=== PATIENT | male | born 1965 | race Caucasian/White ===

== ENCOUNTER 2019-05-02 08:33 | Emergency (ER) | payer OTHER ==
[2019-05-02] MEDS ORDERED: Ketorolac INJ* 30 MG/ML 1 ML VIAL IM ONE (10:25)
[2019-05-02] MEDS ORDERED: Diazepam TAB(*) 5 MG PO ONE (10:25)
--- NOTE | 2019-05-02 10:25 | ED ---
Lower Extremity - HPI Summary HPI Summary: The patient is a 53 y/o M presenting to [facility] with a chief complaint of gradually worsening LLE pain onset three days ago. The pain begins in the posterior left hip and wraps around into the anterior thigh extending to the knee. He endorses pain in the leg that worsened last night, causing him to suffer from pain with movement and sitting upright. The sharp, throbbing pain is currently rated 10/10 in severity. He has used heat, ice, Ibuprofen, and Oxycodone to no relief of the pain. He denies any back pain, urinary or bowel dysfunction, or numbness/saddle anesthesia. He does not sit for extended periods of time. No trauma, but he has experienced similar symptoms in the past but not to this severity for which he saw his PCP. He notes that he had been shoveling and working on his car the day previous to the pain beginning. PMHx: degenerative disc disease lumbar spine. Nonsmoker, no EtOH, no substance use. Medications reviewed. Allergies noted. - History of Current Complaint Chief Complaint: EDBackInjuryPain Stated Complaint: LOW BACK/LT LEG PAIN PER PT Time Seen by Provider: 05/02/19 09:49 Hx Obtained From: Patient Mechanism Of Injury: Unknown Onset of Pain: Prior to Arrival Onset/Duration: Days - 3 Severity Initially: Moderate Severity Currently: Severe Pain Intensity: 10 Pain Scale Used: 0-10 Numeric Timing: Constant, Lasting Days Location: Other - left posterior hip into the anterior thigh extending to knee Character Of Pain: Sharp, Throbbing Aggravating Factor(s): Ambulation, Movement, Other - sitting upright Alleviating Factor(s): Nothing - heat, ice, Oxycodone, Ibuprofen to no relief Able to Bear Weight: No - Allergies/Home Medications Allergies/Adverse Reactions: Allergies Allergy/AdvReac Type Severity Reaction Status Date / Time No Known Allergies Allergy Verified 05/02/19 08:39 PMH/Surg Hx/FS Hx/Imm Hx Endocrine/Hematology History: Denies: Hx Diabetes Cardiovascular History: Denies: Hx Hypertension Musculoskeletal History: Reports: Other Musculoskeletal History - degenerative disc disease lumbar spine - Surgical History Surgical History: None Surgery Procedure, Year, and Place: none Infectious Disease History: No Infectious Disease History: Denies: Traveled Outside the [place] in Last 30 Days - Family History Known Family History: Negative: Cardiac Disease, Diabetes - Social History Alcohol Use: None Hx Substance Use: No Substance Use Type: Reports: None Hx Tobacco Use: No Smoking Status (MU): Never Smoked Tobacco Review of Systems Negative: Other - bowel dysfunction Negative: other - urinary dysfunction Positive: Other - burning, throbbing pain from posterior left hip into anterior thigh to knee; Negative: back pain Negative: Numbness - in the medial or lateral thigh All Other Systems Reviewed And Are Negative: Yes Physical Exam - Summary Physical Exam Summary: Constitutional: Well-developed, Well-nourished, Alert. (-) Distressed Skin: Warm, Dry HENT: Normocephalic; Atraumatic Eyes: Conjunctiva normal Neck: Musculoskeletal ROM normal neck. (-) JVD, (-) Stridor, (-) Nuchal rigidity Cardio: Rhythm regular, rate normal, Heart sounds normal; Intact distal pulses; Radial pulses are 2+ and symmetric. (-) Murmur Pulmonary/Chest wall: Effort normal. (-) Respiratory distress, (-) Wheezes, (-) Rales Abd: Soft, (-) tenderness, (-) Distension, (-) Guarding, (-) Rebound Musculoskeletal: Tenderness to the left SI joint. Pain w left SLR. Tenderness over the anterior/lateral thigh, No tenderness of the knee or distal left leg, No midline lumbar tenderness. (-) Edema. 2+ DP pulse Lymph: (-) Cervical adenopathy Neuro: Alert, Oriented x3, SILT BLE, 5/5 strength in hips/knees/ankles w flex and extension. Psych: Mood and affect Normal Triage Information Reviewed: Yes Vital Signs On Initial Exam: Initial Vitals Temp Pulse Resp BP Pulse Ox 97.6 F 77 16 128/84 100 05/02/19 08:36 05/02/19 08:36 05/02/19 08:36 05/02/19 08:36 05/02/19 08:36 Vital Signs Reviewed: Yes Procedures - Sedation Patient Received Moderate/Deep Sedation with Procedure: No Diagnostics - Vital Signs Vital Signs Temp Pulse Resp BP Pulse Ox 05/02/19 08:36 97.6 F 77 16 128/84 100 - Laboratory Lab Statement: Any lab studies that have been ordered have been reviewed, and results considered in the medical decision making process. Re-Evaluation - Re-Evaluation First Eval Re-Evaluation Time: 11:35 Change: Improved Comment: Patient's pain has improved as he is sleeping comfortably. We discussed discharge plan. Second Eval Re-Evaluation Time: 11:45 Change: Worse Comment: Patient went to put his pants back on and stand up, but had severe returning pain in the leg. Will order Percocet. Third Eval Re-Evaluation Time: 12:00 Change: Improved Comment: He is feeling better and feels safe to go home. Lower Extremity Course/Dx - Course Course Of Treatment: 53 y/o male p/w worsening pain to L anterior/lateral thigh in distribution fem nerve/lateral fem nerve. - worse w sitting. No known trauma , no fevers, no hx cancer, no bowel or bladder incontinence. - exam w/o weakness, no midline lumbar tenderness. imaging deferred. - d/w patient symptom control, tried valium and toradol w minimal relief. Patient almost completely asymptomatic when lying down. - had significant pain when leaning forward to put pants on but was OK w ambulating. - suspect peripheral nerve compression. advised to try PT and return for worsening symptoms. - Diagnoses Provider Diagnoses: Piriformis syndrome of left side Discharge ED - Sign-Out/Discharge Documenting (check all that apply): Patient Departure - Patient will be discharged home. - Discharge Plan Condition: Stable Disposition: HOME Prescriptions: Diazepam TAB(*) [Valium TAB(*)] 5 mg PO BEDTIME PRN 4 Days #4 tab MDD 1 PRN Reason: Spasms - Back Ibuprofen TAB* [Motrin TAB* 800 MG] 800 mg PO Q6H 10 Days #30 tab Patient Education Materials: Piriformis Syndrome (ED) Referrals: Ciaran Marino DO [Primary Care Provider] - 3 Days Additional Instructions: You were seen in the emergency department for pain. Please follow up with her doctor, you will likely benefit from physical therapy. Please take Valium as needed for muscle spasms, do not drive while taking Valium as it can make you drowsy. Please take Motrin 800 mg every 8 hours as needed for pain. Please follow up with your primary care doctor in the next 2-3 days and return to the emergency department for worsening pain, numbness or weakness of legs, difficulty urinating or concerning symptoms. It was a pleasure taking care of you today. - Billing Disposition and Condition Condition: STABLE Disposition: Home - Attestation Statements Document Initiated by Sophia: Yes Documenting Scribe: Sarita Florez Provider For Whom Sophia is Documenting (Include Credential): Dr. Karl Nelson MD Scribe Attestation: I, Sarita Florez, scribed for Dr. Karl Nelson MD on 05/03/19 at 1828. Scribe Documentation Reviewed: Yes Provider Attestation: The documentation as recorded by the Sarita stone accurately reflects the service I personally performed and the decisions made by me, Dr. Karl Nelson MD Status of Scribe Document: Viewed
[2019-05-02] MEDS ORDERED: Lidocaine PATCH 5%* 1 PATCH TRANSDERM ONE (10:41)
[2019-05-02] MEDS ORDERED: oxyCODONE/Acetamin 5/325 MG* TAB PO ONE (11:46)
[2019-05-02] MEDS ORDERED: Dexamethasone TAB* 4 MG PO ONE (12:11)
[2019-05-02 12:43] VITALS: BP 153/86
[2019-05-02] MEDS ORDERED: Lidocaine Patch REMOVE* 1 NOTE MISC SCH (21:00)
[2019-05-03] MEDS ORDERED: Dexamethasone TAB* 6 MG PO ONE (12:02)
== END 2019-05-02 12:42 | disposition home or self-care (01) ==
LOC: ED 08:33
DX: G57.02 Lesion of sciatic nerve, left lower limb (principal)
CPT/HCPCS: 96372; 99283; A9270-GY; J1885; J8540